=== PATIENT | male | born 1980 | race Caucasian/White ===

== ENCOUNTER 2022-08-06 03:12 | Emergency (ER) | payer SELFPAY ==
[~2022-08-06] VITALS: Ht 170.2 cm; Wt 79.0 kg
[2022-08-06] MEDS ORDERED: IBUP-2029 MT (08:25)
[2022-08-06 08:44] VITALS: BP 106/64
== END 2022-08-06 08:47 | disposition home or self-care (01) ==
LOC: ER 03:12
DX: M54.41 Lumbago with sciatica, right side (principal)
CPT/HCPCS: 99282